=== PATIENT | male | born 2000 | race Hispanic/Latino ===

== ENCOUNTER 2018-01-21 11:05 | Emergency (ER) | payer OTHER ==
[~2018-01-21] VITALS: Ht 165.1 cm; Wt 73.4 kg
[2018-01-21] MEDS ORDERED: MOTRIN400 MG PO (14:05)
[2018-01-21 14:09] VITALS: BP 134/83
== END 2018-01-21 14:14 | disposition home or self-care (01) | DRG 552 ==
LOC: ED 11:05
DX: M54.5 Low back pain (principal); M25.552 Pain in left hip; W17.89XA Other fall from one level to another, initial encounter; Y93.89 Activity, other specified; Y92.89 Other specified places as the place of occurrence of the external cause

== ENCOUNTER 2018-02-05 14:13 | Emergency (ER) | payer OTHER ==
[~2018-02-05] VITALS: Ht 165.1 cm; Wt 71.0 kg
[~2018-02-05 14:13] MED LIST: MOTRIN400 MG PO
[2018-02-05] MEDS ORDERED: PERCOCET 5/325M1 TAB PO (16:08)
[2018-02-05] MEDS ORDERED: MOTRIN800 MG PO (16:08)
[2018-02-05] MEDS ORDERED: CIPROFLOXACN750 MG PO (16:08)
[2018-02-05 16:21] VITALS: BP 131/77
== END 2018-02-05 16:46 | disposition home or self-care (01) | DRG 605 ==
LOC: ED 14:13
PROC: 0HQNXZZ Repair Left Foot Skin, External Approach (ICD-10-PCS; principal; 2018-02-05)
DX: S91.115A Laceration without foreign body of left lesser toe(s) without damage to nail, initial encounter (principal); S92.532A Displaced fracture of distal phalanx of left lesser toe(s), initial encounter for closed fracture; W20.8XXA Other cause of strike by thrown, projected or falling object, initial encounter; Y92.89 Other specified places as the place of occurrence of the external cause; Y99.0 Civilian activity done for income or pay

== ENCOUNTER 2018-02-08 16:39 | Emergency (ER) | payer OTHER ==
[~2018-02-08] VITALS: Ht 165.1 cm; Wt 74.0 kg
[~2018-02-08 16:39] MED LIST changes: +CIPROFLOXACN750 MG PO; +MOTRIN800 MG PO; +PERCOCET 5/325M1 TAB PO
[2018-02-08 17:10] VITALS: BP 139/77
== END 2018-02-08 17:10 | disposition home or self-care (01) | DRG 950 ==
LOC: ED 16:39
DX: S91.115D Laceration without foreign body of left lesser toe(s) without damage to nail, subsequent encounter (principal); S92.532D Displaced fracture of distal phalanx of left lesser toe(s), subsequent encounter for fracture with routine healing

== ENCOUNTER 2018-02-16 13:54 | Emergency (ER) | payer OTHER ==
[~2018-02-16] VITALS: Ht 165.1 cm; Wt 75.0 kg
[2018-02-16 14:29] VITALS: BP 135/77
== END 2018-02-16 14:29 | disposition home or self-care (01) | DRG 950 ==
LOC: ED 13:54
DX: S91.115D Laceration without foreign body of left lesser toe(s) without damage to nail, subsequent encounter (principal); X58.XXXD Exposure to other specified factors, subsequent encounter

== ENCOUNTER 2019-11-14 12:37 | Emergency (ER) | payer OTHER ==
[2019-11-14 13:55] VITALS: BP 129/79
== END 2019-11-14 13:55 | disposition home or self-care (01) | DRG 563 ==
LOC: ED 12:37
DX: S39.011A Strain of muscle, fascia and tendon of abdomen, initial encounter (principal); X50.0XXA Overexertion from strenuous movement or load, initial encounter; Y93.89 Activity, other specified; Y92.89 Other specified places as the place of occurrence of the external cause; Y99.0 Civilian activity done for income or pay

== ENCOUNTER 2024-12-07 07:02 | Emergency (ER) | payer SELFPAY ==
[~2024-12-07] VITALS: Ht 165.1 cm; Wt 90.7 kg
[2024-12-07] MEDS ORDERED: GLUCAGON HCL (Rdna) 1 MG VIAL IM ONE (07:35)
[2024-12-07] MEDS ORDERED: ONDANSETRON4 MG/5 ML PO (08:15)
[2024-12-07 08:20] VITALS: BP 138/83
== END 2024-12-07 08:31 | disposition home or self-care (01) | DRG 395 ==
LOC: ED 07:02
DX: T18.128A Food in esophagus causing other injury, initial encounter (principal); W44.F3XA Food entering into or through a natural orifice, initial encounter; Z72.0 Tobacco use
CPT/HCPCS: J1610